=== PATIENT | male | born 1980 | race American Indian/Alaskan Native ===

== ENCOUNTER 2021-09-14 11:59 | Emergency (ER) | payer SELFPAY ==
[2021-09-14] MEDS ORDERED: SODIUM CHLORIDE 0.9% 1000 ML 1,000 ML IV ONE (12:21)
[2021-09-14] MEDS ORDERED: hydrALAZINE 20 MG/1 ML INJ IV ONE (12:21)
--- NOTE | 2021-09-14 14:20 | XRay Report ---
XR chest 1V ap INDICATION / CLINICAL INFORMATION: Chest Pain. COMPARISON: None available. FINDINGS: SUPPORT DEVICES: None. HEART /PULMONARY VASCULATURE: No significant abnormality. LUNGS / PLEURA: No significant pulmonary or pleural abnormality. No pneumothorax. ADDITIONAL FINDINGS: Dextroscoliosis and chronic left-sided rib deformities noted. IMPRESSION: 1. No acute chest process. Signer Name: Johnathan Roe MD Signed: 09/14/2021 2:16 PM Workstation Name: [id number]
[2021-09-14 14:56] LABS: BUN/Creatinine Ratio 15; Blood Urea Nitrogen 16 mg/dL (9-20); Calcium 9.7 mg/dL (8.4-10.2)
[2021-09-14 14:57] LABS: Alanine Aminotransferase 26 units/L (7-56); Albumin 3.9 g/dL (3.9-5); Hemolysis Index 203
[2021-09-14 15:03] VITALS: BP 137/89
[2021-09-14 15:06] LABS: INR 0.92 (0.87-1.13)
[2021-09-14 15:07] LABS: Partial Thromboplastin Time 30.4 Sec. (24.2-36.6)
--- NOTE | 2021-09-14 15:10 | Emergency Department Report ---
ED General Adult HPI - General Chief complaint: Chest Pain Stated complaint: CHEST PAIN Time Seen by Provider: 09/14/21 12:11 Source: patient, EMS Mode of arrival: Stretcher Limitations: No Limitations - History of Present Illness Initial comments: The patient presents to the emergency department the chief complaint of chest pain that started last night. Patient states chest pain is located left side of his chest and denies any radiation. He describes the pain is sharp in nature. Patient does endorse using cocaine last night prior to having chest pain. Patient also endorses using marijuana. Patient denies abdominal pain, headache, shortness of breath. On arrival the patient's BP was elevated with a systolic pressure being greater than 180. Patient denies the use of antihypertensive medications -: Sudden Location: chest Radiation: non-radiation Severity scale (0 -10): 5 Quality: sharp Consistency: constant Improves with: none Worsens with: none Associated Symptoms: denies other symptoms Treatments Prior to Arrival: none - Related Data Previous Rx's Medication Instructions Recorded Last Taken Type hydroCHLOROthiazide [HCTZ] 25 mg PO QDAY #30 tablet 09/14/21 Unknown Rx Allergies Allergy/AdvReac Type Severity Reaction Status Date / Time No Known Allergies Allergy Unverified 09/14/21 12:01 ED Review of Systems ROS: Stated complaint: CHEST PAIN Other details as noted in HPI Comment: All other systems reviewed and negative Constitutional: denies: chills, fever Eyes: denies: eye pain, eye discharge, vision change ENT: denies: ear pain, throat pain Respiratory: denies: cough, shortness of breath, wheezing Cardiovascular: chest pain. denies: palpitations Endocrine: no symptoms reported Gastrointestinal: denies: abdominal pain, nausea, diarrhea Genitourinary: denies: urgency, dysuria Musculoskeletal: denies: back pain, joint swelling, arthralgia Skin: denies: rash, lesions Neurological: denies: headache, weakness, paresthesias Psychiatric: denies: anxiety, depression Hematological/Lymphatic: denies: easy bleeding, easy bruising ED Past Medical Hx - Past Medical History Previous Medical History?: Yes Hx Hypertension: Yes Hx CVA: Yes (TIA) - Social History Smoking Status: Unknown if ever smoked Substance Use Type: None - Medications Home Medications: Home Medications Medication Instructions Recorded Confirmed Last Taken Type hydroCHLOROthiazide [HCTZ] 25 mg PO QDAY #30 tablet 09/14/21 Unknown Rx ED Physical Exam - General Limitations: No Limitations General appearance: alert, in no apparent distress - Head Head exam: Present: atraumatic, normocephalic - Eye Eye exam: Present: normal appearance - ENT ENT exam: Present: mucous membranes moist - Neck Neck exam: Present: normal inspection - Respiratory Respiratory exam: Present: normal lung sounds bilaterally. Absent: respiratory distress - Cardiovascular Cardiovascular Exam: Present: regular rate, normal rhythm. Absent: systolic murmur, diastolic murmur, rubs, gallop - GI/Abdominal GI/Abdominal exam: Present: soft, normal bowel sounds, other (Patient has anterior abdominal wall hernia from a prior surgery hernia is reducible and nonobstructed). Absent: distended, tenderness - Rectal Rectal exam: Present: deferred - Extremities Exam Extremities exam: Present: normal inspection - Back Exam Back exam: Present: normal inspection - Neurological Exam Neurological exam: Present: alert, oriented X3 - Psychiatric Psychiatric exam: Present: normal affect, normal mood - Skin Skin exam: Present: warm, dry, intact, normal color. Absent: rash ED Course Vital Signs 09/14/21 09/14/21 09/14/21 13:06 14:33 15:01 Temperature 96.9 F L Pulse Rate 91 H 79 Respiratory 15 Rate Blood Pressure 205/137 Blood Pressure 137/89 [Right] O2 Sat by Pulse 96 100 Oximetry ED Medical Decision Making - Lab Data Result diagrams: 09/14/21 14:10 Lab Results 09/14/21 09/14/21 Range/Units 14:10 14:10 PT 13.4 (12.2-14.9) Sec. INR 0.92 (0.87-1.13) APTT 30.4 (24.2-36.6) Sec. Sodium 138 (137-145) mmol/L Potassium 5.5 H (3.6-5.0) mmol/L Chloride 105.0 (98-107) mmol/L Carbon Dioxide 20 L (22-30) mmol/L Anion Gap 19 mmol/L BUN 16 (9-20) mg/dL Creatinine 1.1 (0.8-1.3) mg/dL Estimated GFR > 60 ml/min BUN/Creatinine Ratio 15 % Glucose 76 (75-100) mg/dL Calcium 9.7 (8.4-10.2) mg/dL Total Bilirubin 0.50 (0.1-1.2) mg/dL AST 40 (5-40) units/L ALT 26 (7-56) units/L Alkaline Phosphatase 119 (35-129) units/L Troponin T < 0.010 (0.00-0.029) ng/mL NT-Pro-B Natriuret Pep 291.3 (0-450) pg/mL Total Protein 7.1 (6.3-8.2) g/dL Albumin 3.9 (3.9-5) g/dL Albumin/Globulin Ratio 1.2 % - EKG Data -: EKG Interpreted by Pr EKG shows normal: sinus rhythm Rate: normal - Radiology Data Radiology results: report reviewed - Medical Decision Making Discussed results with patient Patient received IV hydralazine as an antihypertensive medication Discussed with patient that his chest pain may be secondary to his elevated BP and the lack of control of his blood pressure as well as recent cocaine use. Patient states he is chest pain-free now upon repeat evaluation of the patient at 3 PM Patient given p.o. Kayexalate Critical Care Time: Yes Critical care time in (mins) excluding proc time.: 35 Critical care attestation.: If time is entered above; I have spent that time in minutes in the direct care of this critically ill patient, excluding procedure time. ED Disposition Clinical Impression: Hypertension, Nonspecific chest pain, Hyperkalemia Disposition: 01 HOME / SELF CARE / HOMELESS Is pt being admited?: No Does the pt Need Aspirin: No Condition: Stable Instructions: Hypertension (ED), Nonspecific Chest Pain, Adult, Hypertension, Adult, Hyperkalemia, [id number]-[id number] Additional Instructions: Return if worse Prescriptions: hydroCHLOROthiazide [HCTZ] 25 mg PO QDAY #30 tablet Referrals: PRIMARY CAREMD [Primary Care Provider] - 3-5 Days DIANE BUTTS MD [Staff Physician] - 3-5 Days NIA STUBBS MD [Staff Physician] - 3-5 Days Time of Disposition: 15:20
[2021-09-14] MEDS ORDERED: SODIUM POLYSTYRENE 15 GM/60 ML ORAL LIQD PO ONE (15:15)
[2021-09-14 15:20] LABS: Mean Corpuscular HGB Conc 30 % (32-34); Mean Corpuscular Volume 76 fl (84-94); Platelet Count 262 K/mm3 (140-440); Red Blood Count 4.96 M/mm3 (3.65-5.03); Red Cell Distribution Width 19.5 % (13.2-15.2)
[2021-09-14 15:21] LABS: Hematocrit 37.5 % (35.5-45.6); Hemoglobin 11.3 gm/dl (11.8-15.2)
--- NOTE | 2021-09-17 10:40 | Electrocardiograph Report ---
[facility] Test Date: 2021-09-14 Test Time: 12:19:33 Pat Name: MILKA JENNINGS Department: Room: Gender: M Cableman: JORGE : 1980 Requested By: MICHELLE CROW Order Number: [id number] Reading MD: Jamia Mcmillan Measurements Intervals [place] Rate: 62 P: 72 CT: 165 QRS: -4 QRSD: 88 T: 95 QT: 417 QTc: 424 Interpretive Statements Sinus rhythm Probable left atrial enlargement Nonspecific anterior ST segment elevation No previous ECG available for comparison Electronically Signed On 09-17-2021 10:39:47 EST by Jamia Mcmillan
== END 2021-09-14 16:11 | disposition home or self-care (01) ==
LOC: ED 11:59
DX: I10 Essential (primary) hypertension (principal); E87.5 Hyperkalemia; Z86.73 Personal history of transient ischemic attack (TIA), and cerebral infarction without residual deficits; Z79.899 Other long term (current) drug therapy
CPT/HCPCS: 36415; 71045; 80053; 83880; 84484; 85025; 85610; 85730; 93005; 96361; 96374; 99284; J0360; J7030; Q0162

== ENCOUNTER 2022-01-28 15:18 | Emergency (ER) | payer SELFPAY ==
[2022-01-29 05:18] VITALS: BP 164/90
== END 2022-01-29 21:53 | disposition left against medical advice (07) ==
LOC: ED 01-29 20:55
DX: R53.1 Weakness (principal); R73.9 Hyperglycemia, unspecified; Z53.21 Procedure and treatment not carried out due to patient leaving prior to being seen by health care provider

== ENCOUNTER 2022-02-28 06:09 | Emergency (ER) | payer SELFPAY ==
[2022-02-28 06:16] VITALS: BP 158/82
[2022-02-28] MEDS ORDERED: HYDROcodone/ACETAMINOPHEN 5-325 MG TAB PO ONE (11:24)
[2022-02-28] MEDS ORDERED: ONDANSETRON 4 MG ODT TAB PO ONE (11:24)
[2022-02-28] MEDS ORDERED: IBUPROFEN 600 MG TAB PO ONE (11:25)
--- NOTE | 2022-02-28 12:19 | XRay Report ---
LUMBOSACRAL SPINE 3 VIEWS INDICATION / CLINICAL INFORMATION: Fall yesterday with injury and low back pain. COMPARISON: None available. FINDINGS: BONES / JOINT(S): There is mild to moderate thoracolumbar scoliosis. The vertebral body heights and d isc spaces are well-maintained. The pedicles are intact and the SI joints are normal. There is no eleni dence of acute fracture or subluxation. SOFT TISSUES: No significant abnormality. ADDITIONAL FINDINGS: There are surgical changes in the left upper abdomen. IMPRESSION: No acute findings. Signer Name: Tyler Krueger MD Signed: 02/28/2022 12:14 PM Workstation Name: [id number]
--- NOTE | 2022-02-28 12:22 | XRay Report ---
RIGHT RIBS 5 VIEWS INDICATION / CLINICAL INFORMATION: Pain - fall. COMPARISON: 09/14/2021 FINDINGS: RIBS: No acute, displaced fracture or other acute abnormality. LUNGS: No acute findings. No pneumothorax. Rightward curvature of the thoracolumbar spine. Signer Name: Willy Garcia MD Signed: 02/28/2022 12:17 PM Workstation Name: [email or web address] [id number]
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
== END 2022-02-28 14:00 | disposition home or self-care (01) ==
LOC: ED 06:09
DX: S20.211A Contusion of right front wall of thorax, initial encounter (principal); M62.830 Muscle spasm of back; I10 Essential (primary) hypertension; Z86.73 Personal history of transient ischemic attack (TIA), and cerebral infarction without residual deficits; Z98.890 Other specified postprocedural states; W10.9XXA Fall (on) (from) unspecified stairs and steps, initial encounter; Y93.89 Activity, other specified; Y92.098 Other place in other non-institutional residence as the place of occurrence of the external cause; Y99.8 Other external cause status
CPT/HCPCS: 72100; 99283; J3490; Q0162

== ENCOUNTER 2022-03-08 06:13 | Emergency (ER) | payer SELFPAY ==
[2022-03-08] MEDS ORDERED: SODIUM CHLORIDE 0.9% 1000 ML 1,000 ML IV ONE (07:27)
[2022-03-08] MEDS ORDERED: MECLIZINE 25 MG TAB PO ONE (07:27)
[2022-03-08 08:21] LABS: Mean Corpuscular HGB Conc 32 % (32-34)
[2022-03-08 08:35] LABS: Basophils # (Auto) 0.1 K/mm3 (0.0-0.1); Eosinophils # (Auto) 0.2 K/mm3 (0.0-0.4); Eosinophils % (Auto) 3.5 % (0.0-4.3); Hematocrit 37.2 % (35.5-45.6); Hemoglobin 11.7 gm/dl (11.8-15.2); Mean Corpuscular Volume 76 fl (84-94); Monocytes # (Auto) 0.7 K/mm3 (0.0-0.8); Monocytes % (Auto) 10.4 % (0.0-7.3); Platelet Count 412 K/mm3 (140-440); Red Blood Count 4.92 M/mm3 (3.65-5.03); Red Cell Distribution Width 17.7 % (13.2-15.2)
[2022-03-08 08:46] LABS: Creatine Kinase MB 5.5 ng/mL (0.0-4.0)
--- NOTE | 2022-03-08 08:46 | XRay Report ---
CHEST 1 VIEW 03/08/2022 8:15 AM INDICATION / CLINICAL INFORMATION: Lightheadedness/Dizziness. COMPARISON: 02/28/2022 ribs x-ray FINDINGS: SUPPORT DEVICES: None. HEART / MEDIASTINUM: No significant abnormality. LUNGS / PLEURA: No significant pulmonary or pleural abnormality. No pneumothorax. ADDITIONAL FINDINGS: Severe thoracolumbar scoliosis is again noted. Chronic left rib deformities are unchanged. IMPRESSION: 1. No acute findings. Signer Name: Pepe Johnson Jr, MD Signed: 03/08/2022 8:41 AM Workstation Name: [id number]
[2022-03-08 08:47] LABS: Alanine Aminotransferase 27 units/L (7-56); Albumin 3.9 g/dL (3.9-5); BUN/Creatinine Ratio 17; Basophils % (Auto) 1.6 % (0.0-1.8); Blood Urea Nitrogen 20 mg/dL (9-20); Calcium 9.9 mg/dL (8.4-10.2); Hemolysis Index 3; Lymphocytes # (Auto) 2.1 K/mm3 (1.2-5.4); Lymphocytes % (Auto) 30.6 % (13.4-35.0)
[2022-03-08] MEDS ORDERED: cloNIDine 0.1 MG TAB PO ONE (08:51)
[2022-03-08 09:56] LABS: Bilirubin,Urine NEG (Negative); Blood,Urine NEG (Negative); Color,Urine Yellow (Yellow); Protein,Urine <15 mg/dL mg/dL (Negative); RBC,Urine < 1.0 /HPF (0.0-6.0)
[2022-03-08 10:14] LABS: WBC,Urine < 1.0 /HPF (0.0-6.0)
[2022-03-08 10:27] LABS: Amphetamine Screen,Urine Negative; Benzodiazepines Screen,Urine Negative; Methadone Screen,Urine Negative; Opiate Screen,Urine Negative
[2022-03-08 10:44] LABS: Cannabinoid Screen,Urine Positive; Cocaine Screen,Urine Positive
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
[2022-03-08] MEDS ORDERED: hydrALAZINE 20 MG/1 ML INJ IV ONE (11:11)
--- NOTE | 2022-03-08 11:29 | Electrocardiograph Report ---
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
[2022-03-08 12:33] VITALS: BP 149/95
== END 2022-03-08 12:40 | disposition home or self-care (01) ==
LOC: ED 06:13
DX: F14.10 Cocaine abuse, uncomplicated (principal); R42 Dizziness and giddiness; I10 Essential (primary) hypertension; F17.200 Nicotine dependence, unspecified, uncomplicated; F10.20 Alcohol dependence, uncomplicated
CPT/HCPCS: 36415; 71045; 80053; 80307; 81001; 82550; 82553; 84484; 85025; 93005; 96361; 96374; 99284; J0360; J7030; 80320; G0480